=== PATIENT | male | born 1970 | race Caucasian/White ===

== ENCOUNTER → 2023-11-18 15:49 | Outpatient (REF) | payer BC, SELFPAY | LOC: RAD 15:49 | PROVIDERS: ATTENDING PHYSICIAN Family Medicine | DX: M79.605 Pain in left leg (principal) | CPT/HCPCS: 93971 ==

== ENCOUNTER → 2024-06-29 10:20 | Outpatient (REF) | payer BC, SELFPAY | LOC: DHSLP 10:20 | PROVIDERS: ATTENDING PHYSICIAN Otolaryngology; FAMILY PHYSICIAN Family Medicine | DX: G47.33 Obstructive sleep apnea (adult) (pediatric) (principal) | CPT/HCPCS: 95800 ==